=== PATIENT | male | born 1990 | race Caucasian/White ===

== ENCOUNTER 2022-09-19 20:03 | Emergency (ER) | payer MEDICAID ==
[2022-09-19] MEDS ORDERED: Amoxicillin/Clavulanate K 875-125 MG Tab PO ONE (21:01)
== END 2022-09-19 21:45 | disposition home or self-care (01) ==
LOC: JP.ED 20:03
DX: M70.21 Olecranon bursitis, right elbow (principal); Z91.048 Other nonmedicinal substance allergy status
CPT/HCPCS: 73080; 99283; A9270